=== PATIENT | male | born 1985 | race American Indian/Alaskan Native ===

== ENCOUNTER 2018-05-24 16:05 | Emergency (ER) | payer SELFPAY | END 2018-05-24 16:20 | disposition left against medical advice (07) | LOC: ED 16:05 | DX: J02.0 Streptococcal pharyngitis (principal); Z53.21 Procedure and treatment not carried out due to patient leaving prior to being seen by health care provider ==

== ENCOUNTER 2018-05-25 16:34 | Emergency (ER) | payer OTHER ==
--- NOTE | 2018-05-25 16:41 | Emergency Department Report ---
Blank Doc - Documentation Documentation: This is a 32-year-old male that presents with URI symptoms. This initial assessment diagnostic orders/clinical plan/treatment(s) is/are subject to change based on patient's health status, clinical progression and re- assessment by fellow clinical providers in the ED. Further treatment and workup at subsequent clinical providers discretion. Patient/guardians urged not to elope from ED s their condition may be serious if not clinically assessed and managed. Initial orders include: 1-Patient sent to [facility] for further evaluation and treatment 2- CXR
[2018-05-25 16:49] VITALS: BP 120/70
--- NOTE | 2018-05-25 20:21 | XRay Report ---
FINAL REPORT EXAM: XR CHEST ROUTINE 2V HISTORY: cough TECHNIQUE: 2 views of the chest. PRIORS: None. FINDINGS: The cardiomediastinal silhouette appears normal. The lungs are clear. The bones and soft tissues are unremarkable. IMPRESSION: No evidence of acute cardiopulmonary disease
--- NOTE | 2018-05-25 21:12 | Emergency Department Report ---
- General Chief Complaint: Upper Respiratory Infection Stated Complaint: FLU LIKE SYMPTOMS Time Seen by Provider: 05/25/18 16:41 Source: patient Mode of arrival: Ambulatory Limitations: No Limitations - History of Present Illness Initial Comments: 18-year-old -Italian male presents to the emergency room for complaint of nasal congestion and runny nose generalized body aches. Patient states that it started yesterday. Patient reports that he came to the emergency room yesterday but left without being seen. Patient reports that he tried [id number] Mucinex which did help but only last about 4-6 hours. MD Complaint: fever, rhinorrhea, nasal congestion -: days(s) (1) Consistency: intermittent Improves With: cough suppressant Worsens With: nothing Associated Symptoms: fever, rhinorrhea, nasal congestion, cough - Related Data Previous Rx's Medication Instructions Recorded Last Taken Type Permethrin 5% [Acticin 5% CREAM] 60 gm TP ONCE #1 tube 07/21/13 Unknown Rx hydrOXYzine HCL [Atarax] 10 mg PO PRN #10 tablet 07/21/13 Unknown Rx methylPREDNISolone [Medrol Dose 8 mg PO QAM #7 tab.ds.pk 07/21/13 Unknown Rx Josué] Allergies Allergy/AdvReac Type Severity Reaction Status Date / Time No Known Allergies Allergy Unverified 07/21/13 14:19 ED Review of Systems ROS: Stated complaint: FLU LIKE SYMPTOMS Other details as noted in HPI Comment: All other systems reviewed and negative ED Past Medical Hx - Past Medical History Hx Hypertension: No Hx CVA: No Hx Heart Attack/AMI: No Hx Congestive Heart Failure: No Hx Diabetes: No Hx Deep Vein Thrombosis: No Hx Pulmonary Embolism: No Hx Liver Disease: No Hx Renal Disease: No Hx Sickle Cell Disease: No Hx Headaches / Migraines: No Hx Seizures: No Hx Kidney Stones: No Hx Psychiatric Treatment: No Hx Asthma: No Hx COPD: No Hx Tuberculosis: No Hx Dementia: No - Surgical History Hx Coronary Stent: No Hx Open Heart Surgery: No Hx Pacemaker: No Hx Internal Defibrillator: No Hx Cholecystectomy: No Hx Appendectomy: No Hx Breast Surgery: No - Social History Smoking Status: Never Smoker Substance Use Type: None - Medications Home Medications: Home Medications Medication Instructions Recorded Confirmed Last Taken Type Permethrin 5% [Acticin 5% CREAM] 60 gm TP ONCE #1 tube 04/23/14 Unknown Rx hydrOXYzine HCL [Atarax] 10 mg PO PRN #10 tablet 07/21/13 Unknown Rx methylPREDNISolone [Medrol Dose 8 mg PO QAM #7 tab.ds.pk 07/21/13 Unknown Rx Josué] ED Physical Exam - General Limitations: No Limitations General appearance: alert, in no apparent distress - Head Head exam: Present: atraumatic, normocephalic - Eye Eye exam: Present: normal appearance - ENT ENT exam: Present: mucous membranes moist - Neck Neck exam: Present: normal inspection - Respiratory Respiratory exam: Present: normal lung sounds bilaterally. Absent: respiratory distress - Cardiovascular Cardiovascular Exam: Present: regular rate, normal rhythm. Absent: systolic murmur, diastolic murmur, rubs, gallop - GI/Abdominal GI/Abdominal exam: Present: soft, normal bowel sounds - Rectal Rectal exam: Present: deferred - Extremities Exam Extremities exam: Present: normal inspection - Back Exam Back exam: Present: normal inspection - Neurological Exam Neurological exam: Present: alert, oriented X3 - Psychiatric Psychiatric exam: Present: normal affect, normal mood - Skin Skin exam: Present: warm, dry, intact, normal color. Absent: rash ED Course Vital Signs 05/25/18 16:47 Temperature 97.4 F L Pulse Rate 85 Respiratory 18 Rate Blood Pressure 120/70 [Left] O2 Sat by Pulse 100 Oximetry ED Medical Decision Making - Radiology Data Radiology results: report reviewed Patient: SUKUMAR GIVENS MR#: [id number] : 1985 Acct:[id number] Age/Sex: 32 / M ADM Date: 05/25/18 Loc: ED Attending Dr: Ordering Physician: ARON BUCHANAN NP Date of Service: 05/25/18 Procedure(s): XR chest routine 2V Accession Number(s): [id number] cc: ARON BUCHANAN NP Fluoro Time In Minutes: FINAL REPORT EXAM: XR CHEST ROUTINE 2V HISTORY: cough TECHNIQUE: 2 views of the chest. PRIORS: None. FINDINGS: The cardiomediastinal silhouette appears normal. The lungs are clear. The bones and soft tissues are unremarkable. IMPRESSION: No evidence of acute cardiopulmonary disease Transcribed By: [facility] [place]ict[place] By: ROBERTH BOYD MD Electronically Authenticated By: ROBERTH BOYD MD Signed Date/Time: 05/25/182020 DD/ 19 TD/TT: 05/25/182019 - Medical Decision Making Patient has been evaluated this provider in [facility]. Discuss with patient this is a viral syndrome and that he can take [id number]-fik-sohoifg Zyrtec's Mucinex, ibuprofen or Tylenol. Discussed the patient to increase his fluid intake. Recommend patient to follow up with her primary care provider if his symptoms persist or gets worse. Critical care attestation.: If time is entered above; I have spent that time in minutes in the direct care of this critically ill patient, excluding procedure time. ED Disposition Clinical Impression: Viral syndrome Disposition: DC-01 TO HOME OR SELFCARE Is pt being admited?: No Does the pt Need Aspirin: No Condition: Stable Instructions: Viral Syndrome (ED) Additional Instructions: Please take ibuprofen or naproxen or Tylenol for body aches and fever. He can take lukw-otw-ytbhzis Zyrtec's and Mucinex or Robitussin. Increase her water intake advance her diet as tolerated and rest. If his symptoms persist or gets worse please follow up with her primary care provider. Referrals: ROBBIN SRINIVASAN MD [Primary Care Provider] - 3-5 Days Forms: Work/School Release Form(ED)
== END 2018-05-25 21:31 | disposition home or self-care (01) ==
LOC: ED 16:34
DX: B34.9 Viral infection, unspecified (principal)
CPT/HCPCS: 71046